=== PATIENT | male | born 1990 | race Caucasian/White ===

== ENCOUNTER 2018-08-16 17:10 | Emergency (ER) | payer OTHER ==
[2018-08-16] MEDS ORDERED: Diphtheria,Pertussis(Acell),Tetanus Vaccine 0.5 ML Syringe IM ONE (17:31)
[2018-08-16] MEDS ORDERED: Lidocaine 1% 10 ML MDV INJECT ONE (17:32)
[2018-08-16] MEDS ORDERED: Bupivacaine 0.5% 30 ML SDV INJECT ONE (18:07)
[2018-08-16] MEDS ORDERED: Bupivacaine 0.5% 10 ML SDV ONE (18:10)
--- NOTE | 2018-08-16 18:50 | EDM.PDOC ---
ED HPI GENERAL MEDICAL PROBLEM - General Chief Complaint: Upper Extremity Injury/Pain Stated Complaint: RIGHT PINKY INJURY Time Seen by Provider: 08/16/18 17:18 Source of Information: Reports: Patient, RN Notes Reviewed History Limitations: Reports: No Limitations - History of Present Illness INITIAL COMMENTS - FREE TEXT/NARRATIVE: Patient is a 27-year-old male who presents to the ED today for the evaluation of a right pinky finger injury. 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 He was wearing protective gloves at the time. The safety worker present in the room states that if he had not been wearing his impact gloves, that he very well could have lost his finger. The patient has a laceration to the dorsal aspect of his right pinky. Around 5 cm in length and is a V-shaped. He can still move his finger, he does have sensation to his left pinky tip. He states that he does not think he is up-to-date on his tetanus booster. He states that he is right-handed. Right Hand Pain Score (Numeric/FACES): 7 - Related Data Allergies Allergy/AdvReac Type Severity Reaction Status Date / Time No Known Allergies Allergy Verified 08/16/18 17:24 Home Meds: Home Meds . [No Known Home Meds] 08/16/18 [History] Past Medical History - Past Health History Medical/Surgical History: Denies Medical/Surgical History Social & Family History - Tobacco Use Smoking Status *Q: Current Every Day Smoker Years of Tobacco use: 10 Packs/Tins Daily: 0.5 - Caffeine Use Caffeine Use: Reports: Energy Drinks, Tea - Recreational Drug Use Recreational Drug Use: No Review of Systems - Review of Systems Review Of Systems: ROS reveals no pertinent complaints other than HPI. Constitutional: Reports: No Symptoms Eyes: Reports: No Symptoms Ears: Reports: No Symptoms Nose: Reports: No Symptoms Mouth/Throat: Reports: No Symptoms Respiratory: Reports: No Symptoms Cardiovascular: Reports: No Symptoms GI/Abdominal: Reports: No Symptoms Genitourinary: Reports: No Symptoms Musculoskeletal: Reports: Hand Pain (right pinky finger injury.) ED EXAM, GENERAL - Physical Exam Exam: See Below Exam Limited By: No Limitations General Appearance: Alert, WD/WN, No Apparent Distress Eye Exam: Bilateral Eye: Normal Inspection Ears: Normal External Exam Nose: Normal Inspection Throat/Mouth: Normal Inspection, Normal Oropharynx Head: Atraumatic, Normocephalic Neck: Normal Inspection Respiratory/Chest: No Respiratory Distress, Lungs Clear, Normal Breath Sounds, No Accessory Muscle Use, Chest Non-Tender Cardiovascular: Normal Peripheral Pulses, Regular Rate, Rhythm, No Murmur Extremities: Normal Inspection, Normal Range of Motion, Normal Capillary Refill Neurological: Alert, Oriented, Normal Cognition, No Motor/Sensory Deficits Psychiatric: Normal Affect, Normal Mood Skin Exam: Warm, Dry, Normal Color, Wound/Incision (5 cm V-shaped laceration to the dorsal aspect of the right pinky finger over the PIP) ED TRAUMA EXTREMITY PROCEDURES - Laceration/Wound Repair Right Digit - 5th (Baby) Lac/Wound Length In cm: 5 Appearance: Superficial, Irregular (V-shaped), Mildly Contaminated Distal NVT: Neuro & Vascular Intact, No Tendon Injury Anesthetic Type: Digital Local Anesthesia - Lidocaine (Xylocaine): 1% Plain Local Anesthetic Volume: Other (10) Skin Prep: Chlorhexidine (Hibiciens) Saline Irrigation (cc's): 1,000 (copious) Exploration/Debridement/Repair: Wound Explored, In a Bloodless Field, Explored to Base, No Foreign Material Found, Wound Margins Revised Closed With: Sutures Suture Size: 4-0 # of Sutures: 10 Suture Type: Prolene, Interrupted, Simple Sterile Dressing Applied: Nurse Tetanus Status Addressed: Yes Complications: No Course - Vital Signs Last Recorded V/S: Last Vital Signs Temp 98.5 F 08/16/18 19:35 Pulse 82 08/16/18 19:35 Resp 16 08/16/18 19:35 BP 112/64 08/16/18 19:35 Pulse Ox 94 L 08/16/18 19:35 - Orders/Labs/Meds Orders: Active Orders 24 hr Category Date Time Status Vaccines to be Administered [RC] PER UNIT ROUTINE Care 08/16/18 17:31 Active Fingers Fifth Digit Rt F9 [CR] Stat Exams 08/16/18 17:31 Taken Meds: Medications Discontinued Medications Generic Name Dose Route Start Last Admin Trade Name Freq PRN Reason Stop Dose Admin Bupivacaine HCl 10 ml 08/16/18 18:07 08/16/18 19:48 Marcaine 0.5% INJECT 08/16/18 18:08 Not Given ONETIME ONE Bupivacaine HCl Confirm 08/16/18 18:10 08/16/18 18:33 Sensorcaine-Mpf 0.5% Administered 08/16/18 18:11 Not Given Dose 10 ml .ROUTE .STK-MED ONE Diphtheria/Tetanus/Acell Pertussis 0.5 ml 08/16/18 17:31 08/16/18 17:50 Adacel IM 08/16/18 17:32 0.5 ml .ONCE ONE Administration Lidocaine HCl 10 ml 08/16/18 17:32 08/16/18 17:52 Xylocaine 1% INJECT 08/16/18 17:33 10 ml ONETIME ONE Administration - Re-Assessments/Exams Free Text/Narrative Re-Assessment/Exam: 08/16/18 18:53 Patient presents to the ED for right pinky finger injury. I did order a x-ray for further evaluation to make sure that there was not actually a fracture involved. The x-ray did not demonstrate any fracture at this time. The wound will be cleansed and sutured, a finger splint will be placed. Departure - Departure Time of Disposition: 18:53 Disposition: Home, Self-Care 01 Condition: Fair Clinical Impression: Finger laceration Qualifiers: Encounter type: initial encounter Finger: little finger Damage to nail status: without damage Foreign body presence: without foreign body Laterality: right Qualified Code(s): S61.216A - Laceration without foreign body of right little finger without damage to nail, initial encounter - Discharge Information *PRESCRIPTION DRUG MONITORING PROGRAM REVIEWED*: No *COPY OF PRESCRIPTION DRUG MONITORING REPORT IN PATIENT JESSE: No Instructions: Stitches, [place], or Adhesive Wound Closure, [id number] Referrals: PCP,None [Primary Care Provider] - Forms: ED Department Discharge Additional Instructions: You have been evaluated in the ED for your laceration. Sutures will need to stay in for 10 days (08/26/18). Please keep the splint in place so that the finger has adequate time to heal and and so that the stitches do not pop open over the knuckle joint. You may return to the ED or clinic for removal. Please keep this area clean and dry, you may cleanse with regular soap and water. No vigorous scrubbing. Please return to ED if your symptoms change or worsen. - My Orders Last 24 Hours: My Active Orders 08/16/18 17:31 Vaccines to be Administered [RC] PER UNIT ROUTINE Fingers Fifth Digit Rt F9 [CR] Stat - Assessment/Plan Last 24 Hours: My Active Orders 08/16/18 17:31 Vaccines to be Administered [RC] PER UNIT ROUTINE Fingers Fifth Digit Rt F9 [CR] Stat
--- NOTE | 2018-08-17 06:42 | CR ---
Right fifth finger: Four views of the right fifth finger were obtained. Comparison: No prior finger exam. Joint spaces are preserved. Soft tissue swelling is noted. No fracture, dislocation or other bony abnormality is seen. Impression: 1. Soft tissue swelling. No acute bony abnormality is seen on right fifth finger study. Diagnostic code #2
== END 2018-08-16 19:35 | disposition home or self-care (01) ==
LOC: JD.ED 17:10
DX: S61.216A Laceration without foreign body of right little finger without damage to nail, initial encounter (principal); Z23 Encounter for immunization; F17.210 Nicotine dependence, cigarettes, uncomplicated; W20.8XXA Other cause of strike by thrown, projected or falling object, initial encounter
CPT/HCPCS: 12002; 73140; 90471; 90700; 99283; J2001

== ENCOUNTER 2018-08-29 09:35 | Emergency (ER) | payer OTHER ==
--- NOTE | 2018-08-29 09:46 | EDM.PDOC ---
ED HPI GENERAL MEDICAL PROBLEM - General Chief Complaint: Chest Pain Stated Complaint: [facility] Time Seen by Provider: 08/29/18 09:46 - History of Present Illness INITIAL COMMENTS - FREE TEXT/NARRATIVE: 27-year-old male presents emergency room with chest pain. This started shortly before arrival the patient was at work moving a bunch of pipes afternoon 150-200 pieces of pipe he developed some chest discomfort, he continued to move another 100 pieces of pipe or so. this is left-sided chest pain. The patient is a little anxious this point. He has no prior history of heart problems however he has a strong family history of heart problems. patient denies any illicit drug use alcohol use but he does smoke. Left Chest Pain Score (Numeric/FACES): 7 - Related Data Allergies Allergy/AdvReac Type Severity Reaction Status Date / Time No Known Allergies Allergy Verified 08/29/18 09:41 Past Medical History - Past Health History Medical/Surgical History: Denies Medical/Surgical History Social & Family History - Caffeine Use Caffeine Use: Reports: Energy Drinks, Tea ED ROS GENERAL - Review of Systems Review Of Systems: See Below Constitutional: Reports: No Symptoms HEENT: Reports: No Symptoms Respiratory: Reports: No Symptoms Cardiovascular: Reports: Chest Pain GI/Abdominal: Reports: No Symptoms : Reports: No Symptoms ED EXAM, GENERAL - Physical Exam Exam: See Below Exam Limited By: No Limitations General Appearance: Alert, No Apparent Distress, Anxious, Other (He is somewhat anxious) Head: Atraumatic, Normocephalic Neck: Normal Inspection, Supple, Non-Tender, Full Range of Motion Respiratory/Chest: No Respiratory Distress, Lungs Clear, Normal Breath Sounds Cardiovascular: Regular Rate, Rhythm, No Edema, No Murmur GI/Abdominal: Normal Bowel Sounds, Soft, Non-Tender Back Exam: Normal Inspection, Muscle Spasm (Mild left lower back) Extremities: Normal Inspection, No Pedal Edema Neurological: Alert, Oriented, Normal Cognition Psychiatric: Anxious Course - Vital Signs Last Recorded V/S: Last Vital Signs Temp 37.0 C 08/29/18 09:46 Pulse 97 08/29/18 09:46 Resp 18 08/29/18 09:46 BP 128/78 08/29/18 09:46 Pulse Ox 98 08/29/18 09:46 - Orders/Labs/Meds Orders: Active Orders 24 hr Category Date Time Status EKG Documentation Completion [RC] STAT Care 08/29/18 10:34 Active Labs: Laboratory Tests 08/29/18 08/29/18 Range/Units 09:40 09:50 Troponin I < 0.017 (0.00-0.056) ng/mL Urine Opiates Screen Negative (BGKTZL=536) Ur Buprenorphine Scrn Negative (CUTOFF=10) Ur Oxycodone Screen Negative (EZX1RX=849) Urine Methadone Screen Negative (HBM8UM=917) Ur Propoxyphene Screen Negative (TXKFFB=119) Ur Barbiturates Screen Negative (MWDYRF=201) Ur Tricyclics Screen Negative (UQVALY=183) Ur Phencyclidine Scrn Negative (CUTOFF=25) Ur Amphetamine Screen Negative (MNTHOQ=892) U Methamphetamines Scrn Negative (NGOTTB=691) U Benzodiazepines Scrn Negative (RCCCQQ=870) U Cocaine Metab Screen Negative (PHJHBI=330) U Marijuana (THC) Screen Negative (CUTOFF=50) Meds: Medications Discontinued Medications Generic Name Dose Route Start Last Admin Trade Name Freq PRN Reason Stop Dose Admin Lorazepam 0.5 mg 08/29/18 10:36 08/29/18 10:51 Ativan PO 08/29/18 10:37 0.5 mg ONETIME ONE Administration - Re-Assessments/Exams Free Text/Narrative Re-Assessment/Exam: Patient was given some Ativan and feels much better EKG shows no acute changes chest x-ray unremarkable troponin normal at this point he would like to go home and get some rest Departure - Departure Time of Disposition: 12:11 Disposition: Home, Self-Care 01 Clinical Impression: Anxiety, Chest discomfort Clinical Impression: (Ruled Out): Low back strain, Iliotibial band syndrome, left leg Forms: ED Department Discharge Additional Instructions: Return to the emergency room with any questions problems worsening symptoms. You need to establish with a local physician or the physician back home to discuss your anxiety. Go home and get some rest your given a medication that can cause some sedation you should not work or drive the rest of the day. - My Orders Last 24 Hours: My Active Orders 08/29/18 10:34 EKG Documentation Completion [RC] STAT - Assessment/Plan Last 24 Hours: My Active Orders 08/29/18 10:34 EKG Documentation Completion [RC] STAT
[2018-08-29] MEDS ORDERED: LORazepam 0.5 MG Tab PO ONE (10:36)
--- NOTE | 2018-08-29 11:46 | CR ---
Chest: Portable view of the chest was obtained. Comparison: No prior chest x-ray. Heart size and mediastinum are normal. Lungs are clear. Bony structures are unremarkable. Impression: 1. Nothing acute is seen on portable chest x-ray. Diagnostic code #1
== END 2018-08-29 12:30 | disposition home or self-care (01) ==
LOC: JD.ED 09:35
DX: F41.9 Anxiety disorder, unspecified (principal)
CPT/HCPCS: 36415; 71045; 80306; 84484; 93005; 99285; A9270; 99283